=== PATIENT | female | born 1990 | race Caucasian/White ===

== ENCOUNTER 2016-07-06 03:46 | Inpatient (IN) ==
[2016-07-06] MEDS ORDERED: ONDANSETRON 4 MG/2 ML VIAL IV STA ×2 (03:58→04:38)
[2016-07-06] MEDS ORDERED: HYDROmorphone 2 MG/1 ML VIAL IV STA (03:58)
[2016-07-06] MEDS ORDERED: SODIUM CHLORIDE 0.9% 1,000 ML IV STA (03:58)
[2016-07-06] MEDS ORDERED: METOCLOPRAMIDE 10 MG/2 ML VIAL IV STA (03:58)
[2016-07-06] MEDS ORDERED: MECLIZINE 25 MG TABLET PO STA (03:58)
--- NOTE | 2016-07-06 04:03 | Emergency Department Note ---
Arrival - Arrival Chief Complaint: Nausea/Vomiting/Diarrhea Stated Complaint: dizzy,vomiting, lightheaded ED Nursing Triage Note: c/o dizziness, nausea, actively vomiting at time of triage. pt is approx 20 weeks . JUANA 11/30/16. pt states she had a headache and took tylenol at approx. 0100. Mode of Arrival: Wheelchair Limitations: No Limitations Source: Patient Time Seen by Provider: 07/06/16 03:58 - History of Present Illness HPI Narrative: This 26-year-old white female 20 weeks presents with abrupt onset of frontal headache, nausea, vomiting, and extreme dizziness. Patient had not any significant complaints for the last several days including any chills, fever, family members with gastroenteritis, or unusual food intake. Her most pressing symptom at the moment would seem to be the dizziness which is incited by any movement soon followed by nausea and vomiting. Onset (ago): hour(s) (Patient presents 3 hours post onset of symptoms) Allergies/Adverse Reactions: Allergies Allergy/AdvReac Type Severity Reaction Status Date / Time meperidine [From Demerol] AdvReac Mild Redness of Verified 09/26/15 08:44 Skin Home Medications: Home Medications Medication Instructions Recorded Confirmed Type Multivitamin () [ 1 tablet PO DAILY tablet 06/30/15 12/07/15 Rx Vitamin] Review of System - Review of System 12 point system: reviewed and no additional remarkable complaints except as stated - Review of System Constitutional: Present: as per HPI Gastrointestinal: Present: as per HPI Medical,Surgical,& Family Hx - Medical History Cardio: No history of: Hypertension Endocrine: No history of: Diabetes Mellitus (IDDM), Diabetes Mellitus (NIDDM) Respiratory: No history of: Asthma, Bronchitis, Pneumonia Renal: No history of: Renal Failure, Renal Problems Gastrointestinal: No history of: Gastrointestinal Bleed, Liver Problems, GI Problems Reproductive: History of: Reproductive Problems (LEEP previously done) No history of: Ectopic , Complication - Surgical History Abdominal Surgeries: Surgical HX of: Abdominal Surgery, Cholecystectomy Reproductive Surgeries: Patient denies;: Section, Gynecologic Surgery - Family History Family History: Reports;: Family Diabetes (Mother, MGM), Family Hypertension ( Mother, MGM, MGF, Sister), Family Stroke (Mother) Denies;: Family Anesthesia Reaction, Family Cancer, Family Heart Disease, Family Psychiatric Problems - Social History Smoking Status: Current every day smoker Frequency of Alcohol Use: None Type of Drug Use: None Exam Physical Examination: GENERAL: Well developed, well nourished white female in no acute distress. HEENT: Normocephalic. No trauma. Moist mucous membranes. EOMI. PERRLA. ENT NML NECK: Supple. No adenopathy. CARDIAC: Regular. No murmurs heart rate 100 O2 sat 97%. CHEST: Clear to auscultation. No respiratory distress. ABDOMEN: Firm with tender pelvis and hypoactive bowel sounds. EXTREMITIES: No trauma. Normal ROM. No pedal edema. SKIN: No diaphoresis. No rash. NEURO: Alert. Neuro intact no focal deficits. Vital Signs: Vital Signs Temperature 98.8 F 07/06/16 03:50 Pulse Rate 100 H 07/06/16 03:50 Respiratory Rate 16 07/06/16 03:50 O2 Sat by Pulse Oximetry 97 07/06/16 03:50 Course - Reevaluation(s) Reevaluation #1: Patient advised hospitalization for intractable vomiting - Consultations Consultation #1: Discussed with Dr. Sapp will admit for further evaluation treatment. Results - Labs CBC & BMP: 07/06/16 04:30 07/06/16 04:30 Labs: I reviewed the laboratory noted the elevated white blood cell count Disposition Clinical Impression: Intractable vomiting, Gastroenteritis Case discussed with: patient Disposition: Still a Patient Condition: Guarded Time of Disposition: 05:00
[2016-07-06] MEDS ORDERED: ONDANSETRON 4 MG/2 ML VIAL ONE ×2 (04:04→04:32)
[2016-07-06] MEDS ORDERED: METOCLOPRAMIDE 10 MG/2 ML VIAL ONE (04:04)
[2016-07-06] MEDS ORDERED: HYDROmorphone 2 MG/1 ML VIAL ONE (04:05)
[2016-07-06] MEDS ORDERED: MECLIZINE 25 MG TABLET ONE (04:05)
[2016-07-06 04:33] LABS: Basophils % 0.2 % (0.0-0.8); Eosinophils % 0.1 % (0.00-10.9); Hemoglobin 13.2 GM/DL (12.0-16.0); Immature Granulocytes % 0.7 %; Immature Granulocytes Absolute 0.15 #; Lymphocytes # 4.3 10*3/uL (1.4-4.0); Lymphocytes % 20.9 % (21.3-54.2); Mean Corpuscular HGB Conc 35.7 GM/DL (32-36); Mean Corpuscular Hemoglobin 33 PG (27-34); Mean Corpuscular Volume 93.4 FL (87-102); Mean Platelet Volume 10.7 FL (9.6-12.0); Monocytes % 4.9 % (1.7-12.7); Neutrophils % 73.2 % (38.7-73.9); Platelet Count 361 T/CUMM (130-400); Red Blood Count 3.96 MC/CUMM (3.8-5.5); Red Cell Distribution Width 13.5 % (9.3-17.3); White Blood Count 20.5 T/CUMM (4-12)
[2016-07-06 04:51] LABS: Alanine Aminotransferase < 9 U/L (13-56); Alkaline Phosphatase 70 U/L (45-117); Amylase 49 U/L (25-115); Aspartate Amino Transferase 11 U/L (0-37); Bilirubin,Total < 0.39 MG/DL (0.2-1.0); Blood Urea Nitrogen 6 MG/DL (7-18); Calcium 8.9 MG/DL (8.5-10.1); Glucose 100 MG/DL (74-106); Osmolality,Calculated 267.1 MOS/KG (273-304); Potassium 3.7 MMOL/L (3.5-5.1); Sodium 135 MMOL/L (136-145); Total Protein 6.9 G/DL (6.4-8.3)
[2016-07-06 05:02] LABS: Hypochromasia 1+; Lymphocytes 26 % (20-55); Platelet Estimate Adequate; Segmented Neutrophils 73 % (50-85); Total Cells Counted 100
[2016-07-06] MEDS ORDERED: ONDANSETRON 4 MG/2 ML VIAL IV PRN (05:02)
[2016-07-06] MEDS ORDERED: PANTOPRAZOLE 40 MG VIAL IV STA (05:02)
[2016-07-06] MEDS ORDERED: HYDROmorphone 2 MG/1 ML VIAL IV PRN (05:02)
[2016-07-06] MEDS ORDERED: SODIUM CHLORIDE 0.9% 1,000 ML IV SCH (05:30)
[2016-07-06] MEDS ORDERED: METOCLOPRAMIDE 10 MG/2 ML VIAL IV SCH (05:30)
[2016-07-06] MEDS ORDERED: PANTOPRAZOLE 40 MG VIAL IV ONE (06:12)
--- NOTE | 2016-07-06 07:07 | Ultrasound Report ---
US OB >= 14 weeks fetus Indication: Contractions. Comparison: None. Technique: Using a transabdominal probe, multiple grayscale, color Doppler, and spectral Doppler images of the uterus and bilateral ovaries were captured and stored. Findings: Cervix is not well demonstrated. As measured, the cervix is 3.4 cm in length. The endocervical canal is not reliably demonstrated. Single vertex fetus with anterior placenta has appropriate amount of amniotic fluid suggested with heart rate of 128 bpm. Measurements of biparietal diameter 19 weeks 5 days, head circumference 19 weeks 2 days, abdominal circumference 19 weeks 4 days, and femur length 19 weeks 5 days result in an estimated composite gestational age of 19 weeks 4 days. Estimated date of delivery is 11/26/2016. Ovaries are not identified. Impression: 1. Single intrauterine gestation is present as detailed. Cervix is not reliably imaged. Evaluation of endocervical canal is not possible. 07/06/2016 7:02 AM PROCEDURE INTERPRETED AT [facility] DEPARTMENT OF RADIOLOGY Final Report Signed by: Dr. Frank Mishra
[2016-07-06 08:16] VITALS: BP 109/65
[2016-07-06] MEDS ORDERED: PROMETHAZINE 25 MG/1 ML VIAL IM PRN (08:29)
== END 2016-07-06 12:45 | disposition home or self-care (01) | DRG 781 ==
LOC: N.ED 03:46 → N.EDINP 05:00 → N.LD 06:22
PROVIDERS: ADMIT Obstetrics & Gynecology; ATTEND Obstetrics & Gynecology

== ENCOUNTER 2016-11-16 18:33 | Inpatient (IN) ==
[2016-11-16] MEDS ORDERED: SODIUM PHOSPHATE ENEMA 133 ML BOTTLE RECTAL ONE (19:23)
[2016-11-16] MEDS ORDERED: INFLUENZA VIRUS VACCINE 0.5 ML SYRINGE IM ONE (19:40)
[2016-11-16 21:06] LABS: Basophils % 0.1 % (0.0-0.8); Eosinophils # 0.1 10*3/uL (0.0-0.87); Eosinophils % 0.9 % (0.00-10.9); Immature Granulocytes % 0.5 %; Immature Granulocytes Absolute 0.07 #; Lymphocytes # 3.5 10*3/uL (1.4-4.0); Lymphocytes % 25.9 % (21.3-54.2); Mean Corpuscular HGB Conc 35.3 GM/DL (32-36); Mean Corpuscular Hemoglobin 33 PG (27-34); Mean Corpuscular Volume 92.1 FL (87-102); Monocytes # 1.1 10*3/uL (0.11-0.8); Monocytes % 8.2 % (1.7-12.7); Neutrophils # 8.6 10*3/uL (1.4-7.4); Neutrophils % 64.4 % (38.7-73.9); Platelet Count 286 T/CUMM (130-400); Red Blood Count 3.69 MC/CUMM (3.8-5.5); Red Cell Distribution Width 13.2 % (9.3-17.3); White Blood Count 13.4 T/CUMM (4-12)
[2016-11-16 21:34] LABS: Alanine Aminotransferase 13 U/L (13-56); Albumin 2.3 G/DL (3.4-5.0); Alkaline Phosphatase 127 U/L (45-117); Aspartate Amino Transferase 19 U/L (0-37); Bilirubin,Total < 0.39 MG/DL (0.2-1.0); Blood Urea Nitrogen 7 MG/DL (7-18); Calcium 8.1 MG/DL (8.5-10.1); Glucose 102 MG/DL (74-106); Osmolality,Calculated 272.7 MOS/KG (273-304); Potassium 3.8 MMOL/L (3.5-5.1); Sodium 138 MMOL/L (136-145); Total Protein 6.5 G/DL (6.4-8.3)
[2016-11-16] MEDS ORDERED: ONDANSETRON 4 MG/2 ML VIAL IV PRN (22:33)
[2016-11-16] MEDS ORDERED: BUTORPHANOL 2 MG/ML VIAL IV PRN (22:33)
[2016-11-17] MEDS ORDERED: OXYTOCIN/LR 20 UNIT/1,000 ML BAG IV ONE ×2 (00:13→12:45)
[2016-11-17] MEDS ORDERED: CITRIC ACID/SODIUM CITRATE 30 ML UDCUP PO ONE (00:31)
[2016-11-17] MEDS ORDERED: ePHEDrine 50 MG/ML AMP IV PRN (00:31)
[2016-11-17] MEDS ORDERED: FAMOTIDINE 20 MG/2 ML VIAL IV ONE (00:31)
[2016-11-17] MEDS ORDERED: ALUMINUM/MAGNES/SIMETH MAX STR 30 ML UDCUP PO ONE (00:31)
[2016-11-17] MEDS: LACTATED RINGERS 1,000 ML IV SCH ×3 (00:40→17:53)
[2016-11-17] MEDS ORDERED: OXYTOCIN/LR 20 UNIT/1,000 ML BAG IV SCH (02:00)
[2016-11-17] MEDS: fentaNYL 2 MCG/ROPIV 0.2% EPID 150 ML EPIDURAL SCH ×2 (02:48→17:53)
[2016-11-17 03:57] LABS: Apearance,Urine CLEAR (Clear); Bilirubin,Urine Negative (Negative); Blood, Urine Small mg/dL (Negative); Glucose,Urine (UA) Negative (Negative); Ketones,Urine Negative (Negative); Nitrite,Urine Negative (Negative); Protein,Urine Negative; RBC,Urine 1 /HPF (0-4); Squamous Epithelial Cell,Urine Occasional /HPF (0-10); Transitional Epi Cells,Urine Occasional /HPF (<1); Urine Color Straw (Yellow); Urine Specific Gravity 1.005 (1.001-1.035); Urine Urobilinogen < 2.0 EU/DL (0.2-1.0); WBC,Urine <1 /HPF (0-6)
[2016-11-17 10:33] LABS: Rapid Plasma Reagin Confirm REACTIVE (Nonreactive)
--- NOTE | 2016-11-17 12:40 | OB/GYN History & Physical ---
History of Present Illness Chief complaint: Active labor, History of present illness: Ms. Martinez is a 26 year old female 3 para 2 EDC is 11/30/2016 patient is at 38 weeks gestation. Patient was admitted from the office at 4 cm dilated. Vertex presentation heart tones were category 1. Patient was observed throughout the evening continue to have irregular uterine contractions. IV Pitocin was initiated and subsequently this patient progressed in labor. Epidural anesthetic will be administered when she feels comfortable at that time. Home Medications Medication Instructions Recorded Confirmed Type Multivitamin () [ 1 tablet PO DAILY tablet 06/30/15 11/16/16 Rx Vitamin] Acetamin/Codeine 300-30 Tab 1 tablet PO Q4-6H 11/16/16 11/16/16 History [Tylenol/Codeine #3] Allergies Allergy/AdvReac Type Severity Reaction Status Date / Time meperidine [From Demerol] AdvReac Mild Redness of Verified 09/26/15 08:44 Skin Medical,Surgical,& Family Hx - Medical History Cardio: No history of: Hypertension Endocrine: No history of: Diabetes Mellitus (IDDM), Diabetes Mellitus (NIDDM) Respiratory: No history of: Asthma, Bronchitis, Pneumonia Renal: No history of: Renal Failure, Renal Problems Gastrointestinal: No history of: Gastrointestinal Bleed, Liver Problems, GI Problems Reproductive: History of: Reproductive Problems (LEEP previously done) No history of: Ectopic , Complication - Surgical History Abdominal Surgeries: Surgical HX of: Abdominal Surgery, Cholecystectomy Reproductive Surgeries: Patient denies;: Section, Gynecologic Surgery - Family History Family History: Reports;: Family Diabetes (Mother, MGM), Family Hypertension ( Mother, MGM, MGF, Sister), Family Stroke (Mother) Denies;: Family Anesthesia Reaction, Family Cancer, Family Heart Disease, Family Hematology, Family Psychiatric Problems, Additional Family History - Social History Smoking Status: Current every day smoker Frequency of Alcohol Use: None 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 Vitals: Vital Signs Temp Pulse Resp BP Pulse Ox 11/17/16 04:00 98 F 79 18 113/66 11/16/16 23:42 98.8 F 95 H 18 123/79 11/16/16 20:00 96 H 18 120/71 11/16/16 19:16 97.3 F L 98 H 20 124/75 98 General appearance: mild distress - Antepartum / Post Antepartum Exam Cervix - Dilatation: 4 Effacement: 60 Station: -2 - Head Head exam: Present: normal inspection - Eye Eye exam: Present: EOMI Pupils: Present: JELENA - ENT ENT exam: Present: normal exam - Neck Neck exam: Present: normal inspection - Respiratory Respiratory exam: Present: clear to auscultation bilaterally - Breast Breasts: as per HPI Menstruation: as per HPI - Cardiovascular Cardiovascular exam: Present: regular rate and rhythm - GI/Abdominal GI/Abdominal exam: Present: normal bowel sounds - Extremities Exam Extremities exam: Present: normal inspection - Back Exam Back exam: Present: normal inspection - Neurological Exam Neurological exam: Present: alert, oriented X3 - Psychiatric Psychiatric exam: Present: normal affect - Skin Skin exam: Present: normal color Assessment and Plan (1) Active labor Status: Acute Assessment and plan: Anticipate , all parties are in agreement Current Visit: Yes Results - Labs CBC & BMP: 11/16/16 20:55 11/16/16 20:55
--- NOTE | 2016-11-17 12:44 | Event Note ---
Delivery note Stage I IV Pitocin initiated Artificial rupture membranes IUPC, scalp electrode internally Epidural anesthetic IV Pitocin heart tones category 1 with occasional deep variable decelerations which responded with repositioning, O2, and decrease in her Pitocin. Stage II Vaginal delivery 1225 Female 6 pounds Apgars 7 at 1 minute 9 at 5 minutes Cord blood and cord gas obtained Stage III No lacerations noted 3 cord vessels Blood loss was less than 250 cc Placenta was sent to the lab for evaluation
[2016-11-17] MEDS ORDERED: ONDANSETRON 4 MG/2 ML VIAL IV PRN (12:45)
[2016-11-17] MEDS ORDERED: WITCH HAZEL PADS 100/JAR TOP PRN (12:45)
[2016-11-17] MEDS ORDERED: HYDROCORTISONE 2.5% RECTAL CREAM 30 GM TUBE TOP PRN (12:45)
[2016-11-17] MEDS ORDERED: RHO(D) IMMUNE GLOBULIN 300 MCG SYRINGE IM ONE (12:45)
[2016-11-17] MEDS ORDERED: oxyCODONE/ACETAMINOPHEN 5-325 MG TABLET PO PRN (12:45)
[2016-11-17] MEDS ORDERED: LANOLIN 50% CREAM 0.3 OZ TUBE TOP PRN (12:45)
[2016-11-17] MEDS ORDERED: MEASLES/MUMPS/RUBELLA VACCINE 0.5 ML VIAL SUBCUT ONE (12:45)
[2016-11-17] MEDS ORDERED: ACETAMINOPHEN 325 MG TABLET PO PRN (12:45)
[2016-11-17] MEDS ORDERED: BISACODYL 10 MG SUPP RECTAL PRN (12:45)
[2016-11-17] MEDS ORDERED: DIPH/TET/ACEL PERT BOOSTER VACCINE 0.5 ML VIAL IM ONE (12:45)
[2016-11-17] MEDS ORDERED: BENZOCAINE 20%/MENTHOL 0.5% SPRAY 56 GM CAN TOP PRN (12:45)
[2016-11-17] MEDS ORDERED: PENICILLIN G BENZATHINE 2,400,000 UNIT/4 ML SYRINGE IM STA (12:47)
[2016-11-17 12:57] LABS: Cord Arterial Blood HCO3 26.5 MMOL/L
[2016-11-17 13:00] LABS: Cord Venous Blood HCO3 23.6 MMOL/L; Cord Venous Blood PCO2 42.7 MMHG; Cord Venous Blood PO2 18.2 MMHG
[2016-11-17] MEDS: oxyCODONE/ACETAMINOPHEN 5-325 MG TABLET PO PRN ×2 (14:50→23:28)
[2016-11-17] MEDS: IBUPROFEN 800 MG TABLET PO PRN (18:33)
[2016-11-17] MEDS: DOCUSATE SODIUM 100 MG CAPSULE PO SCH (20:55)
[2016-11-18] MEDS: IBUPROFEN 800 MG TABLET PO PRN ×3 (02:34→22:37)
[2016-11-18 05:41] LABS: Basophils % 0.2 % (0.0-0.8); Eosinophils % 0.3 % (0.00-10.9); Hematocrit 29.1 VOL% (35.7-47.0); Hemoglobin 10.2 GM/DL (12.0-16.0); Immature Granulocytes % 0.9 %; Immature Granulocytes Absolute 0.09 #; Lymphocytes # 1.5 10*3/uL (1.4-4.0); Lymphocytes % 14.8 % (21.3-54.2); Mean Corpuscular HGB Conc 35.1 GM/DL (32-36); Mean Corpuscular Hemoglobin 33 PG (27-34); Mean Corpuscular Volume 92.7 FL (87-102); Mean Platelet Volume 10.9 FL (9.6-12.0); Monocytes # 0.4 10*3/uL (0.11-0.8); Monocytes % 3.5 % (1.7-12.7); Neutrophils # 8.4 10*3/uL (1.4-7.4); Neutrophils % 80.3 % (38.7-73.9); Platelet Count 218 T/CUMM (130-400); Red Blood Count 3.14 MC/CUMM (3.8-5.5); Red Cell Distribution Width 13.3 % (9.3-17.3); White Blood Count 10.4 T/CUMM (4-12)
[2016-11-18 06:08] LABS: Giant Platelets Few; Hypochromasia 1+; Platelet Estimate Adequate
--- NOTE | 2016-11-18 07:59 | OB/GYN Progress Note ---
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 Absent: tenderness Results - Labs CBC & BMP: 11/18/16 05:22 11/16/16 20:55
[2016-11-18] MEDS: DOCUSATE SODIUM 100 MG CAPSULE PO SCH ×2 (08:14→22:38)
[2016-11-18] MEDS ORDERED: ONDANSETRON 4 MG/2 ML VIAL ONE (09:59)
[2016-11-18] MEDS ORDERED: ONDANSETRON 4 MG/2 ML VIAL IV PRN (10:00)
[2016-11-18] MEDS: oxyCODONE/ACETAMINOPHEN 5-325 MG TABLET PO PRN (15:55)
[2016-11-19 09:01] VITALS: BP 112/67
[2016-11-19] MEDS: DOCUSATE SODIUM 100 MG CAPSULE PO SCH (09:15)
[2016-11-19] MEDS: IBUPROFEN 800 MG TABLET PO PRN (09:21)
--- NOTE | 2016-11-19 09:57 | Discharge Summary ---
Hospital Course - Hospital Course Hospital Course: Routine course. Pt diagnosed with syphyllis during admission. Will require Bicallin injections weekly x 2 upon discharge. Ready to go home today. Diagnosis - Discharge Diagnosis (1) Vaginal delivery Status: Acute Specialty Discharge - Follow Up or Referrals Discharge Plan - Discharge Data Disposition: Disch To Home/Self Care Condition at Discharge: Stable Discharge Diet: advance to your usual diet Activity: other (routine ) Weight Bearing at Discharge: full weight bearing Driving: no restrictions Contact your physician if you experience:: fever over 101, Difficulty voiding, Redness or swelling - Discharge Medications New Ibuprofen Tab [Motrin Tab] 800 mg PO Q6H PRN #30 tablet PRN Reason: Pain Moderate (4-7) No Action Multivitamin () [ Vitamin] 1 tablet PO DAILY tablet Acetamin/Codeine 300-30 Tab [Tylenol/Codeine #3] 1 tablet PO Q4-6H - Follow Up or Referral - Forms/Instructions Instructions: Depression (GEN), Perineal Care (DC), Vaginal Delivery (DC), Bleeding (DC) Exam - Constitutional Vitals: Period Temp Pulse Resp BP Sys/Felipe Pulse Ox Last 24 Hr 97.2 F-99.6 F 80-108 18-20 109-130/63-79 96-99 General appearance: no acute distress - Head Head exam: Present: normal inspection, normocephalic - Eye Eye exam: Present: EOMI - GI/Abdominal GI/Abdominal exam: Present: soft. Absent: tenderness DS: Provider Date of admission: 11/17/16 00:06 Primary care physician: . No PCP Attending physician on admission: Evelyn Sapp MD Consults: 11/17/16 00:06 Consult to Anesthesiology [CONS] Routine Consulting Provider: Reason for Anesthesiology: Epidural Consult Comment: Epidural for pain managment 11/17/16 12:45 Consult to Nuclear Security Officer [CONS] Routine Consult Nuclear Security Officer: Breast Feeding Discharging clinician: Rosita Chiu MD
[2016-11-19] MEDS ORDERED: INFLUENZA VIRUS VACCINE 0.5 ML SYRINGE IM ONE (10:54)
--- NOTE | 2016-11-20 12:22 | Pathology Report from [facility] ---
[facility] ACCESSION # : [id number] PATIENT NAME : Lucy Marx ORDERING DR : PAULINA ARMSTRONG MD CLINICAL HX: IUP @ 38 weeks - Positive RPR titer POST-OP DX: Same SPECIMEN INFO: Placenta GROSS DESCRIPTION: Received fresh labeled with the patients name and consists of a 423 gram placenta which measures 16.0 x 15.0 x 2.8 cm. membranes are lofton and translucent. The umbilical cord measures 16.0 cm, contains three vessels and eccentrically inserted. The surface is blue-oconnor and circumvalate. The maternal surface displays intact red-oconnor cotyledons with no abnormalities grossly appreciated upon sectioning. Sections submitted: A membranes and cord, B and maternal surfaces. DIAGNOSIS FOR LUCY MARX: Three vessel umbilical cord.Unremarkable placental membranes.Circumvallate placenta with unremarkable third trimester placental chorionic villi and subchorionic fibrin deposition. COLLECTED DATE: 11/19/2016 [facility] REPORT DATE: 11/20/2016 ELECTRONICALLY SIGNED BY: Martin Laird M.D. 11/20/2016 - 9:21:00 CRUZ
== END 2016-11-19 13:45 | disposition home or self-care (01) | DRG 774 ==
LOC: N.LDOUT 18:33 → EDSTATUS 18:33 → N.LD 18:34 → N.OB 11-17 17:20
PROVIDERS: ADMIT Obstetrics & Gynecology; ATTEND Obstetrics & Gynecology

== ENCOUNTER 2017-03-08 00:32 | Observation (INO) ==
[2017-03-08] MEDS ORDERED: ONDANSETRON 4 MG/2 ML VIAL IV STA (01:21)
[2017-03-08] MEDS ORDERED: MORPHINE 2 MG/1 ML SYRINGE IV STA (01:21)
[2017-03-08] MEDS ORDERED: SODIUM CHLORIDE 0.9% 1,000 ML IV STA (01:21)
[2017-03-08] MEDS ORDERED: ONDANSETRON 4 MG/2 ML VIAL ONE (01:48)
[2017-03-08] MEDS ORDERED: MORPHINE 2 MG/1 ML SYRINGE ONE (01:48)
[2017-03-08 01:52] LABS: Basophils # 0.1 10*3/uL (0.0-0.2); Basophils % 0.3 % (0.0-0.8); Eosinophils # 0.1 10*3/uL (0.0-0.87); Eosinophils % 0.3 % (0.00-10.9); Hematocrit 40.1 VOL% (35.7-47.0); Hemoglobin 13.6 GM/DL (12.0-16.0); Immature Granulocytes % 0.5 %; Immature Granulocytes Absolute 0.11 #; Lymphocytes # 3.7 10*3/uL (1.4-4.0); Lymphocytes % 15.8 % (21.3-54.2); Mean Corpuscular HGB Conc 33.9 GM/DL (32-36); Mean Corpuscular Hemoglobin 31 PG (27-34); Mean Corpuscular Volume 92.4 FL (87-102); Mean Platelet Volume 10.3 FL (9.6-12.0); Monocytes # 1.4 10*3/uL (0.11-0.8); Monocytes % 6.1 % (1.7-12.7); Neutrophils # 17.9 10*3/uL (1.4-7.4); Platelet Count 365 T/CUMM (130-400); Red Blood Count 4.34 MC/CUMM (3.8-5.5); Red Cell Distribution Width 13.5 % (9.3-17.3); White Blood Count 23.2 T/CUMM (4-12)
[2017-03-08] MEDS ORDERED: HYDROmorphone 2 MG/1 ML VIAL IV STA ×2 (02:02→03:43)
[2017-03-08 02:03] LABS: Apearance,Urine CLEAR (Clear); Bilirubin,Urine Negative (Negative); Blood, Urine Negative (Negative); Glucose,Urine (UA) Negative (Negative); Ketones,Urine Negative (Negative); Mucus,Urine Few /LPF (Occasional); Nitrite,Urine Negative (Negative); Protein,Urine Negative; RBC,Urine 1 /HPF (0-4); Squamous Epithelial Cell,Urine Occasional /HPF (0-10); Urine Color Yellow (Yellow); WBC,Urine 1 /HPF (0-6)
[2017-03-08] MEDS ORDERED: HYDROmorphone 2 MG/1 ML VIAL ONE ×2 (02:05→03:52)
[2017-03-08] MEDS ORDERED: diphenhydrAMINE 50 MG/1 ML VIAL ONE (02:07)
[2017-03-08 02:08] LABS: Albumin 3.7 G/DL (3.4-5.0); Bilirubin,Total 0.6 MG/DL (0.2-1.0); Calcium 8.9 MG/DL (8.5-10.1); Osmolality,Calculated 281.1 MOS/KG (273-304); Potassium 4.3 MMOL/L (3.5-5.1)
[2017-03-08] MEDS ORDERED: diphenhydrAMINE 50 MG/1 ML VIAL IV STA (02:29)
[2017-03-08 02:36] LABS: Lymphocytes 12 % (20-55); Platelet Estimate Normal; Segmented Neutrophils 80 % (50-85); Total Cells Counted 100
[2017-03-08 02:37] LABS: Polychromasia Slight; Target Cells Slight
[2017-03-08] MEDS: HYDROmorphone 2 MG/1 ML VIAL IV PRN ×5 (05:36→22:37)
[2017-03-08] MEDS: CIPROFLOXACIN INJ 400 MG in PREMIX 1 EACH IV SCH ×2 (07:30→21:49)
[2017-03-08 07:53] LABS: Basophils # 0.1 10*3/uL (0.0-0.2); Basophils % 0.3 % (0.0-0.8); Eosinophils # 0.1 10*3/uL (0.0-0.87); Eosinophils % 0.5 % (0.00-10.9); Hematocrit 34.2 VOL% (35.7-47.0); Hemoglobin 11.6 GM/DL (12.0-16.0); Immature Granulocytes % 0.5 %; Immature Granulocytes Absolute 0.09 #; Lymphocytes # 4.8 10*3/uL (1.4-4.0); Lymphocytes % 27.4 % (21.3-54.2); Mean Corpuscular HGB Conc 33.9 GM/DL (32-36); Mean Corpuscular Hemoglobin 32 PG (27-34); Mean Corpuscular Volume 93.4 FL (87-102); Mean Platelet Volume 10.4 FL (9.6-12.0); Monocytes # 1.1 10*3/uL (0.11-0.8); Monocytes % 6.4 % (1.7-12.7); Neutrophils # 11.3 10*3/uL (1.4-7.4); Neutrophils % 64.9 % (38.7-73.9); Platelet Count 316 T/CUMM (130-400); Red Blood Count 3.66 MC/CUMM (3.8-5.5); Red Cell Distribution Width 13.5 % (9.3-17.3); White Blood Count 17.4 T/CUMM (4-12)
[2017-03-08] MEDS: PANTOPRAZOLE 40 MG TABLET PO SCH (08:26)
[2017-03-08] MEDS: metroNIDAZOLE INJ 500 MG in PREMIX 1 EACH IV SCH ×2 (09:40→17:15)
[2017-03-08] MEDS ORDERED: POLYETHYLENE GLYCOL POWDER 255 GM BOTTLE PO ONE (15:00)
[2017-03-08] MEDS ORDERED: BISACODYL 5 MG TABLET PO ONE (15:00)
[2017-03-08] MEDS: ONDANSETRON 4 MG/2 ML VIAL IV PRN ×2 (16:02→20:14)
[2017-03-08] MEDS ORDERED: MAGNESIUM CITRATE 300 ML BOTTLE PO ONE (21:00)
[2017-03-08] MEDS ORDERED: PROMETHAZINE 25 MG/1 ML VIAL IM ONE (22:00)
[2017-03-09] MEDS: metroNIDAZOLE INJ 500 MG in PREMIX 1 EACH IV SCH ×3 (02:57→21:05)
[2017-03-09] MEDS: HYDROmorphone 2 MG/1 ML VIAL IV PRN ×5 (04:53→19:46)
[2017-03-09 05:21] LABS: Basophils % 0.5 % (0.0-0.8); Eosinophils # 0.1 10*3/uL (0.0-0.87); Eosinophils % 0.8 % (0.00-10.9); Hemoglobin 12.6 GM/DL (12.0-16.0); Immature Granulocytes % 0.4 %; Immature Granulocytes Absolute 0.03 #; Lymphocytes # 3.4 10*3/uL (1.4-4.0); Lymphocytes % 40.5 % (21.3-54.2); Mean Corpuscular Hemoglobin 32 PG (27-34); Mean Corpuscular Volume 90.7 FL (87-102); Mean Platelet Volume 10.3 FL (9.6-12.0); Monocytes # 0.7 10*3/uL (0.11-0.8); Monocytes % 7.9 % (1.7-12.7); Neutrophils # 4.2 10*3/uL (1.4-7.4); Neutrophils % 49.9 % (38.7-73.9); Platelet Count 326 T/CUMM (130-400); Red Blood Count 3.97 MC/CUMM (3.8-5.5); Red Cell Distribution Width 13.3 % (9.3-17.3); White Blood Count 8.3 T/CUMM (4-12)
[2017-03-09] MEDS: ONDANSETRON 4 MG/2 ML VIAL IV PRN ×3 (05:54→17:24)
[2017-03-09 06:23] LABS: Band Neutrophils 1 % (0-10); Eosinophils 1 % (0-10); Lymphocytes 47 % (20-55); Segmented Neutrophils 44 % (50-85); Total Cells Counted 100
[2017-03-09 06:24] LABS: Macrocytosis 1+; Platelet Estimate Normal
[2017-03-09] MEDS: CIPROFLOXACIN INJ 400 MG in PREMIX 1 EACH IV SCH ×2 (08:17→22:16)
[2017-03-09] MEDS ORDERED: LIDOCAINE 2% 5 ML VIAL ONE (10:55)
[2017-03-09] MEDS ORDERED: PHENYLEPHRINE 1 MG/10 ML SYRINGE IV ONE (10:55)
[2017-03-09] MEDS ORDERED: PROPOFOL 200 MG/20 ML VIAL IV ONE (10:55)
[2017-03-09] MEDS ORDERED: ePHEDrine 50 MG/ML AMP ONE (11:29)
[2017-03-09] MEDS: PANTOPRAZOLE 40 MG TABLET PO SCH (12:36)
[2017-03-09] MEDS: ACETAMINOPHEN 325 MG TABLET PO PRN ×3 (12:41→22:17)
[2017-03-09] MEDS ORDERED: AMITRIPTYLINE 25 MG TABLET PO SCH (21:00)
[2017-03-10] MEDS: metroNIDAZOLE INJ 500 MG in PREMIX 1 EACH IV SCH (04:09)
[2017-03-10 07:59] VITALS: BP 98/51
[2017-03-10] MEDS: ONDANSETRON 4 MG/2 ML VIAL IV PRN (08:15)
[2017-03-10] MEDS: HYDROmorphone 2 MG/1 ML VIAL IV PRN (08:15)
[2017-03-10] MEDS: CIPROFLOXACIN INJ 400 MG in PREMIX 1 EACH IV SCH (10:00)
[2017-03-10] MEDS ORDERED: CIPROFLOXACIN 500 MG TABLET PO SCH (10:00)
[2017-03-10] MEDS: PANTOPRAZOLE 40 MG TABLET PO SCH (10:30)
== END 2017-03-10 12:30 | disposition home or self-care (01) ==
LOC: N.EDINP 00:32 → N.ED 00:32 → SUATTDRO 05:12 → N.EDINP 05:41 → N.2E 05:45
PROVIDERS: ADMIT Internal Medicine; ATTEND Hospitalist
PROC: COLONBX (2017-03-09 08:35)